=== PATIENT | female | born 1975 | race Caucasian/White ===

== ENCOUNTER 2018-07-22 23:18 | Emergency (ER) | payer BC, MEDICAID ==
--- NOTE | 2018-07-23 00:56 | ED Physician Documentation ---
PD HPI URI - Stated complaint Stated Complaint: SOA - Chief complaint Chief Complaint: Resp - History obtained from History obtained from: Patient, Family - History of Present Illness Timing - onset: Today Timing duration: Hours Timing details: Abrupt onset, Now resolved Associated symptoms: Dry cough Improves by: Rest, Medication Similar symptoms before: Diagnosis (bronchitis) Recently seen: Clinic - Additional information Additional information: 42-year-old female was seen on 29 June and placed onto a Z-Eris for bronchitis. She had some improvement her symptoms did not have resolution she is gone back into see the doctor 3 days ago and at that time she was placed onto a course of Augmentin benzoin 08 and prednisone. She is on her third day of prednisone at 40 mg/day. This afternoon she had a coughing paroxysm that lasted excessively long and was difficult to control. She indicates that she took her bends and await at 1:00 in the afternoon and at 6:00 in the afternoon she had this coughing paroxysm and it was not time for another dose of her medicine. She has become anxious and she believes this may be related to her use of prednisone. She has never taken prednisone previously. She also indicates that she has some cough syrup at home Phenergan with codeine she did not use this this evening as she was uncertain about whether was okay to mix the 2 medications. Her symptoms now are resolved. Review of Systems Constitutional: denies: Fever, Chills, Myalgias Eyes: denies: Decreased vision Ears: reports: Ear pain (improved) Nose: reports: Congestion Throat: denies: Sore throat Cardiac: denies: Chest pain / pressure, Palpitations Respiratory: reports: Dyspnea, Cough GI: denies: Abdominal Pain, Nausea, Vomiting : denies: Dysuria Skin: denies: Rash Neurologic: denies: Generalized weakness, Focal weakness, Numbness Psychiatric: reports: Anxiety PD PAST MEDICAL HISTORY - Past Medical History Past Medical History: No - Past Surgical History Past Surgical History: Yes General: Cholecystectomy, Gastric surgery /[employer]: section - Present Medications Home Medications: Ambulatory Orders Medication Instructions Recorded Confirmed Norethindrone AC-Eth Estradiol DAILY 06/07/14 06/30/15 [Gill 1.5 mg-30 Mcg Tablet] Paroxetine HCl [Paxil] 1 tab DAILY 06/07/14 06/30/15 Trazodone HCl 25 mg DAILY 06/07/14 06/30/15 Alprazolam [Xanax] 1 mg PO 06/30/15 06/30/15 HYDROcod/ACETAM 5/325 [Vicodin 1 - 2 ea PO Q6H PRN #15 tablet 07/01/15 5/325] - Allergies Allergies/Adverse Reactions: Allergies Allergy/AdvReac Type Severity Reaction Status Date / Time metoclopramide HCl * AdvReac Hallucinati Verified 06/07/14 18:27 [From Reglan] ons - Social History Does the pt smoke?: No Smoking Status: Never smoker Does the pt drink ETOH?: No Does the pt have substance abuse?: No - Immunizations Immunizations are current?: Yes - POLST Patient has POLST: No PD ED PE NORMAL - Vitals Vital signs reviewed: Yes (hypertensive marked ) - General General: Alert and oriented X 3, Well developed/nourished, Other (appears anxious ) - HEENT HEENT: Atraumatic, PERRL, EOMI, Pharynx benign, Dentition benign, Other (minimal inflamation on the right TM over the umbo. 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, No motor deficit, No sensory deficit, Normal speech Eye Opening: Spontaneous Motor: Obeys Commands Verbal: Oriented GCS Score: 15 - Psych Psych: Normal mood, Normal affect Results - Vitals Vitals: Vital Signs - 24 hr 07/22/18 23:22 Temperature 36.7 C Heart Rate 105 H Respiratory 20 Rate Blood Pressure 229/128 H O2 Saturation 100 Oxygen O2 Source Room air PD MEDICAL DECISION MAKING - ED course Complexity details: considered differential, d/w patient, d/w family ED course: 42-year-old female recently started a course of prednisone appears bit anxious likely related to the prednisone and she had a coughing paroxysm this afternoon that scared her and she is come to the emergency department this evening for evaluation. On examination she does not appear ill she does not have wheezes she does not have diminished breath sounds she does have residual otitis on the right side that appears benign. I suspect her anxiety is related to the prednisone I have encouraged her to take the next 2 doses of her prednisone and to use medication that she has for anxiety at home. In addition I have encouraged her to use the Phenergan with codeine cough syrup for coughing paroxysms. Departure - Departure Disposition: Home, Self Care Clinical Impression: Bronchitis Condition: Stable Instructions: ED Upper Resp Infec Abx Tx Follow-Up: Char Greenfield ARNP [Primary Care Provider] - Comments: This evening it appears your symptoms are somewhat improved and my recommendation is to use the Phenergan with codeine cough syrup for coughing paroxysms. You can use this together with the bends and await. I also recommend you continue the prednisone on and take something for the anxiety related to this.
[2018-07-23 01:07] VITALS: BP 143/87
== END 2018-07-23 01:07 | disposition home or self-care (01) ==
LOC: ED 23:18
DX: J40 Bronchitis, not specified as acute or chronic (principal); H66.91 Otitis media, unspecified, right ear; F41.9 Anxiety disorder, unspecified
CPT/HCPCS: 99282; 99283

== ENCOUNTER 2019-05-05 21:30 | Emergency (ER) | payer BC, OTHER ==
[2019-05-05] MEDS ORDERED: CHERRY SYRUP 10 ML UDC PO ONE (22:20)
[2019-05-05] MEDS ORDERED: DEXAMETHASONE 10 MG/ML VIAL PO STA (22:20)
--- NOTE | 2019-05-05 22:22 | ED Physician Documentation ---
History of Present Illness - Stated complaint Stated Complaint: TEETH/JAW PX - Chief complaint Chief Complaint: Heent - History obtained from History obtained from: Patient - History of Present Illness Timing: How many weeks ago (3) Pain level max: 4 Pain level now: 3 - Additonal information Additional information: Patient states that her left ear has been bothering her as well as left facial pain. Has had URI symptoms. Has not taken any decongestants at home. Is not having any dental pain. No pain with eating or drinking. No facial swelling. No fevers. Nothing makes it better or worse. 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 - Present Medications Home Medications: Ambulatory Orders Medication Instructions Recorded Confirmed Norethindrone AC-Eth Estradiol DAILY 06/07/14 06/30/15 [Gill 1.5 mg-30 Mcg Tablet] PARoxetine HCl [Paxil] 1 tab PO DAILY 06/07/14 06/30/15 Trazodone HCl 25 mg PO DAILY 06/07/14 06/30/15 Alprazolam [Xanax] 1 mg PO 06/30/15 06/30/15 HYDROcod/ACETAM 5/325 [Vicodin 1 - 2 ea PO Q6H PRN #15 tablet 07/01/15 5/325] Cetirizine HCl/Pseudoephedrine 1 each PO BID PRN #30 tab.er.12h 05/05/19 [Zyrtec-D Tablet] Fluticasone [Flonase] 1 sprays LANDON BID PRN #1 bottle 05/05/19 - Allergies Allergies/Adverse Reactions: Allergies Allergy/AdvReac Type Severity Reaction Status Date / Time metoclopramide HCl * AdvReac Hallucinati Verified 05/05/19 21:48 [From Reglan] ons - Social History Does the pt smoke?: No Smoking Status: Never smoker Does the pt drink ETOH?: No Does the pt have substance abuse?: No - Immunizations Immunizations are current?: Yes - POLST Patient has POLST: No PD ED PE NORMAL - Vitals Vital signs reviewed: Yes - General General: Alert and oriented X 3, No acute distress, Well developed/nourished - HEENT HEENT: Moist mucous membranes, Other (Bilateral tympanic membranes are clear, but there is clear fluid present, left greater than right. Normal oropharyngeal exam. Normal dentition. Slight tenderness over the left frontal and maxillary sinuses) - Neck Neck: Supple, no meningeal sign - Cardiac Cardiac: RRR, Strong equal pulses - Respiratory Respiratory: No respiratory distress, Clear bilaterally - Abdomen Abdomen: Soft, Non tender, Non distended - Derm Derm: Warm and dry - Neuro Neuro: Alert and oriented X 3, chemical instrumentation officer 2-12 intact, No motor deficit, No sensory deficit, Normal speech - Psych Psych: Normal mood, Normal affect Results - Vitals Vitals: Vital Signs - 24 hr 05/05/19 22:30 Heart Rate 72 Respiratory 16 Rate Blood Pressure 140/86 H O2 Saturation 100 Oxygen O2 Source Room air PD MEDICAL DECISION MAKING - ED course Complexity details: considered differential, d/w patient ED course: Patient appears to have sinusitis. Will place on decongestants for home. She is well-appearing, nontoxic. Afebrile. Will hold antibiotics at this time. She also has serous otitis media. Patient counseled regarding signs and symptoms for which I believe and urgent re-evaluation would be necessary. Patient with good understanding of and agreement to plan and is comfortable going home at this time This document was made in part using voice recognition software. While efforts are made to proofread this document, sound alike and grammatical errors may occur. Departure - Departure Disposition: 01 Home, Self Care Clinical Impression: Sinus congestion Serous otitis media Qualifiers: Chronicity: acute Laterality: bilateral Recurrence: non-recurrent Qualified Code(s): H65.03 - Acute serous otitis media, bilateral Condition: Good Instructions: ED Otitis Media Serous Adult Follow-Up: MARCIAL CHAUDHARI ARNP ([facility]) [Primary Care Provider] - Within 1 week Prescriptions: Cetirizine HCl/Pseudoephedrine [Zyrtec-D Tablet] 1 each PO BID PRN #30 tab.er.12h PRN Reason: nasal congestion Fluticasone [Flonase] 1 sprays LANDON BID PRN #1 bottle PRN Reason: Nasal Congestion Comments: This should improve with the steroids and decongestants. Return if you worsen. Discharge Date/Time: 05/05/19 22:30
[2019-05-05 22:32] VITALS: BP 140/86
== END 2019-05-05 22:30 | disposition home or self-care (01) ==
LOC: ED 21:30
DX: J34.89 Other specified disorders of nose and nasal sinuses (principal); H65.03 Acute serous otitis media, bilateral; I10 Essential (primary) hypertension
CPT/HCPCS: 99282; 99284; A9270